=== PATIENT | male | born 1960 | race Caucasian/White ===

== ENCOUNTER 2016-11-14 09:55 | Emergency (ER) | payer MEDICARE, OTHER ==
--- NOTE | ~2016-11-14 | CR170 ---
[facility]. [facility] A Service of [facility] & [facility] RADIOLOGY TEXT RESULTS PATIENT: COLTON FULLER LOCATION: SED : 60 UNIT #: [id number] AGE: [address]: Nati Ward SEX: M ORDER DR: [id number] [place] [place] [id number] E MR#: [id number] Acc #: [id number] NAME: COLTON FULLER : 1960 SEX: M STUDY DATE/TIME: 11/14/2016 10:27 UNIT: SED ROOM: STUDY DESCRIPTION: CR Knee 2 Views Rt Attending Physician: Nati Ward Pa-C Ordering Physician: Nati Ward Pa-C Primary Care Physician: Uvaldo Chandra M.D. MEDICAL IMAGING REPORT This report is preliminary unless electronic signature is present. EXAM Two views right knee INDICATION Right knee pain starting a month ago. No known injury. FINDINGS No acute fracture or subluxation of the right knee is identified. The patient does have degenerative changes involving the right knee most pronounced within the patellofemoral compartment. No aggressive osseous abnormalities are seen and there is no suprapatellar effusion. IMPRESSION No acute disease. Dictated by... Loraine Galan M.D. THIS IS AN ELECTRONICALLY VERIFIED REPORT Loraine Galan M.D. at 11/15/2016 5:00 PM CHUN/kae TD: 11/14/2016 16:25 JOB #: [id number] MEDICAL IMAGING REPORT Page 1 of 1
[~2016-11-14 09:55] MED LIST: AUGMENTIN PO; CELEBREX PO; CELEXA PO; DIAZEPAM PO; GEODON80 MG PO; KETOPROFEN PO; LORCET 10/650 T1 TAB PO; LORTAB 10-5001 EACH PO; LOTREL 5/401 CAP PO; METFORMIN HCL500 M1 PO; NEURONTIN PO; PATIENT'S PHARMACY; PRAVASTATIN SOD10 MG PO; SEROQUEL PO; TOPROL XL PO; TRAZODONE HCL100 MG PO; ULTRAM PO; VERMOX100 MG PO
[2016-11-14] MEDS ORDERED: PRAVASTATIN PO (10:11)
[2016-11-14] MEDS ORDERED: NEURONTIN PO (10:12)
== END 2016-11-14 11:50 | disposition home or self-care (01) ==
LOC: SED 09:55
DX: M25.561 Pain in right knee (principal); E11.9 Type 2 diabetes mellitus without complications; E78.5 Hyperlipidemia, unspecified; I10 Essential (primary) hypertension; Z88.1 Allergy status to other antibiotic agents; Z79.899 Other long term (current) drug therapy; Z88.0 Allergy status to penicillin; Z90.89 Acquired absence of other organs
CPT/HCPCS: 73560; 99283